=== PATIENT | female | born 1950 | race Caucasian/White ===

== ENCOUNTER 2016-12-31 16:25 | Inpatient (IN) | payer MEDICARE ==
[~2016-12-31] VITALS: Ht 157.5 cm; Wt 64.2 kg
[2016-12-31 16:27] VITALS: BP 165/80; PULSE 84; RESP 24; TEMP 98.6; O2SAT 98
--- NOTE | 2016-12-31 16:49 | PD ---
Physical Exam Time Seen by Provider: 16:44 Narrative 66yo F sent by Dr. Garcia for findings of stroke on MRI. Sx of disorientation and confusion started Tuesday. Had no other deficits other than visual hallucinations per . Patient seen in triage. VS reviewed. Awaiting bed placement. Data Data Last Documented VS Vital Signs Date Time Temp Pulse Resp B/P Pulse Ox O2 Delivery O2 Flow Rate FiO2 12/31/16 16:27 98.6 84 24 165/80 98 Room Air [facility] Supervised Visit with TESS: Michelle Vance Dec 31, 2016 16:49
[2016-12-31 16:56] VITALS: BP 147/72; PULSE 78; RESP 16; O2SAT 95
[2016-12-31] MEDS ORDERED: VITA400C28 PO (17:16)
[2016-12-31] MEDS ORDERED: CANA300T PO (17:16)
[2016-12-31] MEDS ORDERED: GABA300C5 PO (17:16)
[2016-12-31] MEDS ORDERED: ZANT150T2 PO (17:16)
[2016-12-31] MEDS ORDERED: PIOG15TA5 PO (17:16)
[2016-12-31] MEDS ORDERED: HYDR25TA5 PO (17:16)
[2016-12-31] MEDS ORDERED: DULA10IN SQ (17:16)
[2016-12-31] MEDS ORDERED: AGGR20025 PO (17:16)
[2016-12-31] MEDS ORDERED: FLUO40CA PO (17:16)
--- NOTE | 2016-12-31 17:24 | PD ---
HPI Chief Complaint: Neuro Symptoms/ Deficits Time Seen by Provider: 16:50 Travel History International Travel<30 days: No Contact w/Intl Traveler<30days: No Traveled to known affect area: No History of Present Illness HPI 66-year-old female was brought in by family member for confusion, disorientation. Family members state that patient started having confusion and disorientation 4 days ago. Patient started buying things on the computer that her family member has to returned them. Patient started remember things that was not true or not there. Patient was talking about interaction with other people that have been for long time. Patient denies any headache. Patient denies any neck pain. Patient denies any chest pain or shortness of breath. Patient denies abdominal pain. Patient denies any focal weakness or numbness of extremity. Patient denies any recent medication change. Patient has history diabetes, depression, GERD. PFSH Past Medical History Hx Anticoagulant Therapy: Yes (asa-dipyridam) Cardiovascular Problems: Yes (htn, [place]) Cerebrovascular Accident: Yes Diabetes: Yes Respiratory: Yes Social History Tobacco Use: No Allergies-Medications (Allergen,Severity, Reaction): Coded Allergies: HMG-CoA Reductase Inhibitors (Verified Allergy, Intermediate, leg pain, 12/31/16) Reported Meds & Prescriptions Reported Meds & Active Scripts Active Reported Trulicity Inj (Dulaglutide Inj) 1.5 Mg/0.5 Ml Pen 1.5 Mg SQ Q7D Zantac (Ranitidine HCl) 150 Mg Tab 150 Mg PO DAILY Vitamin D (Cholecalciferol) Unknown Strength Cap 1 Cap PO WEEKLY Aggrenox (Dipyridamole/Aspirin) 200-25 Mg Cap 1 Cap PO BID Hydrochlorothiazide 25 Mg Tab 25 Mg PO DAILY Gabapentin 300 Mg Cap 300 Mg PO BID Fluoxetine (Fluoxetine HCl) 40 Mg Cap 40 Cap PO DAILY Invokana (Canagliflozin) 300 Mg Tab 300 Mg PO DAILY Take before 1st meal of day. Pioglitazone (Pioglitazone HCl) 15 Mg Tab 15 Mg PO DAILY Review of Systems General / Constitutional: No: Fever Eyes: No: Visual changes HENT: No: Headaches Cardiovascular: No: Chest Pain or Discomfort Respiratory: No: Shortness of Breath Gastrointestinal: No: Abdominal Pain Genitourinary: No: Dysuria Musculoskeletal: No: Pain Skin: No Rash Neurologic: No: Weakness Psychiatric: No: Depression Endocrine: No: Polydipsia Hematologic/Lymphatic: No: Easy Bruising Physical Exam Narrative GENERAL: Well-nourished, well-developed patient. SKIN: Focused skin assessment warm/dry. HEAD: Normocephalic. EYES: No scleral icterus. No injection or drainage. Pupils 3 mm equal reactive. NECK: Supple, trachea midline. No JVD or lymphadenopathy. CARDIOVASCULAR: Regular rate and rhythm without murmurs, gallops, or rubs. RESPIRATORY: Breath sounds equal bilaterally. No accessory muscle use. GASTROINTESTINAL: Abdomen soft, non-tender, nondistended. MUSCULOSKELETAL: No cyanosis, or edema. BACK: Nontender without obvious deformity. No CVA tenderness. Neurologic exam: Patient's awake and alert oriented 3. Patient moves all extremities well. No obvious focal neurological deficit. Data Data Last Documented VS Vital Signs Date Time Temp Pulse Resp B/P Pulse Ox O2 Delivery O2 Flow Rate FiO2 12/31/16 17:31 95 Nasal Cannula 2 12/31/16 16:56 78 16 147/72 12/31/16 16:27 98.6 Orders Electrocardiogram (12/31/16 17:07) Complete Blood Count With Diff (12/31/16 17:07) Comprehensive Metabolic Panel (12/31/16 17:07) Prothrombin Time / Inr (Pt) (12/31/16 17:07) Act Partial Throm Time (Ptt) (12/31/16 17:07) Urinalysis - C+S If Indicated (12/31/16 17:07) Thyroid Stimulating Hormone (12/31/16 17:07) Chest, Single Ap (12/31/16 17:07) Iv Access Insert/Monitor (12/31/16 17:07) Ecg Monitoring (12/31/16 17:07) Oximetry (12/31/16 17:07) Mri Brain W&W/O Contrast (12/31/16 17:24) Mra Brain W/O Contrast (Cow) (12/31/16 17:24) Mra Carotids W Contrast (12/31/16 17:24) Consult Neurology (12/31/16 ) (Hub Use Only)Inp Phy Cons/Ref (12/31/16 ) Sodium Chlor 0.9% 1000 Ml Inj (Ns 1000 M (12/31/16 19:00) Admit Order (Ed Use Only) (12/31/16 19:05) Labs Laboratory Tests Test 12/31/16 17:25 White Blood Count 8.9 TH/MM3 Red Blood Count 5.44 MIL/MM3 Hemoglobin 15.5 GM/DL Hematocrit 47.0 % Mean Corpuscular Volume 86.5 FL Mean Corpuscular Hemoglobin 28.6 PG Mean Corpuscular Hemoglobin 33.0 % Concent Red Cell Distribution Width 12.8 % Platelet Count 264 TH/MM3 Mean Platelet Volume 8.4 FL Neutrophils (%) (Auto) 65.9 % Lymphocytes (%) (Auto) 24.2 % Monocytes (%) (Auto) 7.3 % Eosinophils (%) (Auto) 1.6 % Basophils (%) (Auto) 1.0 % Neutrophils # (Auto) 5.8 TH/MM3 Lymphocytes # (Auto) 2.1 TH/MM3 Monocytes # (Auto) 0.7 TH/MM3 Eosinophils # (Auto) 0.1 TH/MM3 Basophils # (Auto) 0.1 TH/MM3 CBC Comment DIFF FINAL Differential Comment Prothrombin Time 10.4 SEC Prothromb Time International 0.9 RATIO Ratio Activated Partial 28.9 SEC Thromboplast Time Sodium Level 136 MEQ/L Potassium Level 3.8 MEQ/L Chloride Level 100 MEQ/L Carbon Dioxide Level 23.6 MEQ/L Anion Gap 12 MEQ/L Blood Urea Nitrogen 18 MG/DL Creatinine 0.81 MG/DL Estimat Glomerular Filtration 71 ML/MIN Rate Random Glucose 139 MG/DL Calcium Level 9.7 MG/DL Total Bilirubin 0.9 MG/DL Aspartate Amino Transf 20 U/L (AST/SGOT) Alanine Aminotransferase 31 U/L (ALT/SGPT) Alkaline Phosphatase 108 U/L Total Protein 8.0 GM/DL Albumin 3.8 GM/DL Thyroid Stimulating Hormone 0.593 uIU/ML 3rd Gen Hemoglobin A1c 9.6 % [facility] Medical Decision Making Medical Screen Exam Complete: Yes Emergency Medical Condition: Yes Differential Diagnosis Differential diagnosis including TIA, CVA, electrolyte imbalance, dehydration, sepsis. Narrative Course 66-year-old female with confusion, disorientation, hallucination. I spoke with neurologist on-call Dr. Benavides. Patient had MRI without contrast of the brain at [facility] in [place] which equivocal of acute/subacute infarct. Dr. Benavides advised to repeat MRI with and without contrast and MRA of the brain and carotids. Dontrell Yeung MD Dec 31, 2016 17:24
[2016-12-31] MEDS ORDERED: DULA0.5I SQ (17:25)
[2016-12-31 17:31] VITALS: O2SAT 95
[2016-12-31 17:48] LABS: APTT (PATIENT) 28.9 SEC (24.3-30.1); INTERNATIONAL NORMALIZED RATIO 0.9 RATIO; PROTHROMBIN TIME - PATIENT 10.4 SEC (9.8-11.6)
[2016-12-31 17:53] LABS: AUTOMATED NEUTROPHIL # 5.8 TH/MM3 (1.8-7.7); BASOPHIL # 0.1 TH/MM3 (0-0.2); EOSINOPHIL # 0.1 TH/MM3 (0-0.4); EOSINOPHIL % 1.6 % (0.0-4.0); HEMO FLAGS DIFF FINAL; LYMPH % 24.2 % (9.0-44.0); LYMPHOCYTE # 2.1 TH/MM3 (1.0-4.8); MEAN CELL VOLUME 86.5 FL (80.0-100.0); MEAN CORPUSCULAR HEMOGLOBIN 28.6 PG (27.0-34.0); MONO % 7.3 % (0.0-8.0); NEUT % 65.9 % (16.0-70.0); PLATELET COUNT 264 TH/MM3 (150-450); RED BLOOD COUNT 5.44 MIL/MM3 (4.00-5.30); RED CELL DISTRIBUTION WIDTH 12.8 % (11.6-17.2); WHITE BLOOD COUNT 8.9 TH/MM3 (4.0-11.0)
--- NOTE | 2016-12-31 18:02 | RADRPT ---
EXAM DATE/TIME: 12/31/2016 17:33 [facility] COMPARISON: No previous studies available for comparison. INDICATIONS : Shortness of breath and patient having delusions. MEDICAL HISTORY : Diabetes mellitus type II. Myocardial infarction. SURGICAL HISTORY : Angioplasty. ENCOUNTER: Initial ACUITY: 1 day PAIN SCORE: 0/10 LOCATION: chest FINDINGS: A single view of the chest demonstrates the lungs to be symmetrically aerated without evidence of mas s, infiltrate or effusion. The cardiomediastinal contours are unremarkable. Osseous structures are intact. CONCLUSION: 1. No acute cardiopulmonary disease. Ciro Gaxiola MD on December 31, 2016 at 18:01 Board Certified Radiologist. This report was verified electronically.
[2016-12-31 18:10] LABS: ANION GAP 12 MEQ/L (5-15); AST (GOT) 20 U/L (15-37); BICARBONATE 23.6 MEQ/L (21.0-32.0); BLOOD UREA NITROGEN 18 MG/DL (7-18); CHLORIDE 100 MEQ/L (98-107); GLOMERULAR FILTRATION RATE 71 ML/MIN (>89); POTASSIUM 3.8 MEQ/L (3.5-5.1); SODIUM (NA) 136 MEQ/L (136-145)
[2016-12-31 18:11] LABS: ALT (GPT) 31 U/L (10-53)
[2016-12-31 18:20] LABS: ALKALINE PHOSPHATASE 108 U/L (45-117); TOTAL BILIRUBIN ADULT 0.9 MG/DL (0.2-1.0)
[2016-12-31] MEDS ORDERED: SODIUM CHLORIDE 0.9% FLUSH 5 ML FLUSH IV FLUSH PRN (19:30)
[2016-12-31] MEDS ORDERED: ENALAPRILAT 1.25 MG/ML VIAL IV PRN (19:30)
[2016-12-31] MEDS ORDERED: DEXTROSE 50% IN WATER 50 ML VIAL(D50) IV PUSH PRN (19:30)
[2016-12-31] MEDS ORDERED: GLUCAGON 1 MG/ML VIAL OTHER PRN (19:30)
[2016-12-31 19:43] VITALS: O2SAT 96
[2016-12-31] MEDS ORDERED: GADODIAMIDE PF 287 MG/ML 20 ML VIAL (for RAD MRI) IV ONE (20:00)
--- NOTE | 2016-12-31 20:26 | RADRPT ---
EXAM DATE/TIME: 12/31/2016 19:31 [facility] COMPARISON: No previous studies available for comparison. INDICATIONS : Confusion. MEDICAL HISTORY : Diabetes mellitus type 2. SURGICAL HISTORY : None. ENCOUNTER: Initial ACUITY: 1 day PAIN SCORE: 0/10 LOCATION: cranial Please note a normal MRA of the brain does not entirely exclude the possibility of a small aneurysm, nor the possibility of distal intracranial vessel disease. TECHNIQUE: 3D time of flight MRA was performed. Source images, multiplanar STS MIP, and 3D volume MIP reconstru ctions were reviewed. FINDINGS: There is minimal intracranial atherosclerotic vascular disease. The left posterior cerebral arises f rom the bibasilar. The right posterior cerebral arises from and to circulation. CONCLUSION: Intracranial atherosclerotic vascular disease otherwise negative. Jv Hobson MD FACR on December 31, 2016 at 20:22 Board Certified Radiologist. This report was verified electronically.
[2016-12-31 21:00] VITALS: BP 129/71; PULSE 88; RESP 18; O2SAT 98
[2016-12-31] MEDS: INSULIN ASPART SUPPLEMENTAL SCALE SQ SCH (21:00)
[2016-12-31 21:02] LABS: BLOOD, URINE NEG (NEG); COMMENT (UR) CULT NOT INDICATED; CULTURE IF INDICATED CULT NOT INDICATED; GLUCOSE,URINE 1000 mg/dL (NEG); HYALINE CAST, URINE 1 /lpf (RARE); KETONE, URINE 40 mg/dL (NEG); MUCUS URINE FEW /lpf (OCC); NITRITE,URINE NEG (NEG); SQUAMOUS EPITHELIAL CELL URINE <1 /hpf (0-5); URINE COLOR LIGHT-YELLOW (YELLW/STRAW)
[2016-12-31] MEDS: SODIUM CHLOR 0.9% 1000 ML INJ 1,000 ML IV SCH (21:14)
[2016-12-31] MEDS: ENOXAPARIN SODIUM 40 MG/0.4 ML SYRINGE SQ SCH (21:15)
--- NOTE | 2016-12-31 21:16 | RADRPT ---
EXAM DATE/TIME: 12/31/2016 19:31 [facility] COMPARISON: No previous studies available for comparison. INDICATIONS : Confusion. CONTRAST: 20 cc Omniscan (gadodiamide) IV MEDICAL HISTORY : Diabetes mellitus type 2. SURGICAL HISTORY : None. ENCOUNTER: Initial ACUITY: 1 day PAIN SCORE: 0/10 LOCATION: Cranial TECHNIQUE: Multiplanar, multisequence MRI of the brain was performed both prior to and following the administrat ion of paramagnetic contrast. FINDINGS: There is a focal area of restricted diffusion in the thalamus left side that would be consistent with a small acute lacunar infarct. There are scattered areas of high signal intensity in the periventricular white matter. There are no extraaxial fluid collections appreciated. There is no parenchymal hemorrhage. Following intravenous administration of gadolinium there is no abnormal contrast enhancement. CONCLUSION: 1. Acute lacunar infarct type infarction in the basal ganglia left side. 2. Moderate periventricular white matter changes. Jv Hobson MD FACR on December 31, 2016 at 21:02 Board Certified Radiologist. This report was verified electronically.
[2016-12-31 21:22] LABS: ANION GAP 10 MEQ/L (5-15); BICARBONATE 25.4 MEQ/L (21.0-32.0); BLOOD UREA NITROGEN 18 MG/DL (7-18); CHLORIDE 99 MEQ/L (98-107); GLOMERULAR FILTRATION RATE 69 ML/MIN (>89); POTASSIUM 3.5 MEQ/L (3.5-5.1); SODIUM (NA) 134 MEQ/L (136-145)
--- NOTE | 2016-12-31 21:23 | RADRPT ---
EXAM DATE/TIME: 12/31/2016 19:31 [facility] COMPARISON: No previous studies available for comparison. INDICATIONS : Disoriented. CONTRAST: 20 cc Omniscan (gadodiamide) IV MEDICAL HISTORY : Diabetes mellitus type 2. SURGICAL HISTORY : None. ENCOUNTER: Initial ACUITY: 1 day PAIN SCORE: 0/10 LOCATION: cranial Percent stenosis is calculated using the diameter of the stenotic region over the diameter of the nor mal distal internal carotid artery. TECHNIQUE: Bolus infused MRA of the extracranial circulation was performed using a neurovascular coil. Post pro cessing was performed including rotating subvolume maximum intensity projections of each carotid ileana ry, rotating full volume maximum intensity projections of both carotid arteries, sagittal and coronal sliding thin slab reformations of each carotid artery, and left oblique sliding thin slab reformatio n through the aortic arch to include the origin of the arch branch vessels. FINDINGS: AORTIC ARCH: There is a three vessel origin of the great vessels from the aorta. No evidence of ostial narrowing. RIGHT CAROTID: The common carotid artery is intact. The carotid bulb has a normal configuration without ulceration or narrowing. The internal carotid artery lumen is smooth without stenosis. The external carotid ar vel is intact. LEFT CAROTID: 60-70% stenosis of the left internal carotid. VERTEBRALS: The vertebral arteries have a symmetric diameter. No stenotic lesions are seen. CONCLUSION: Moderate stenosis left internal carotid. Jv Hobson MD FACR on December 31, 2016 at 21:21 Board Certified Radiologist. This report was verified electronically.
[2016-12-31 22:19] LABS: CREATINE KINASE 31 U/L (26-192)
--- NOTE | 2016-12-31 23:16 | HHI.HP ---
[facility] Neptali [facility] M.D. Admission Diagnosis acute CVA Diagnoses: (1) CVA (cerebral vascular accident) Diagnosis: Principal (2) Coronary artery disease (3) Diabetes mellitus (4) Hypertension Chief Complaint: Confusion Travel History International Travel<30 Days: No Contact w/Intl Traveler <30 Da: No Traveled to Known Affected Are: No History of Present Illness Patient is a 66-year-old female who was brought to the emergency department by her family because they had noticed increasing confusion and disorientation over the last few days. Apparently she has been remembering events that did not happen and seeing family members who had years ago. She states that her uncle one week ago and since that time she has felt "off". Her family believes that a lot of this is because of depression. She was seen by her primary care physician and a CT of the head was ordered. It showed acute/ subacute CVA and the patient was referred to the ER for admission to the hospital. She denies any numbness, tingling, or weakness of her extremities. She has not had any recent vision changes. She denies chest pain or dyspnea. Review of Systems Constitutional: DENIES: Fever, Chills, Night Sweats Eyes: DENIES: Blurred vision, Vision loss Ears, nose, mouth, throat: DENIES: Hearing loss Respiratory: DENIES: Cough, Wheezing, Sputum production, Shortness of breath Cardiovascular: DENIES: Chest pain, Palpitations, Dyspnea on Exertion, Lower Extremity Edema Gastrointestinal: DENIES: Abdominal pain, Constipation, Diarrhea, Nausea, Vomiting Genitourinary: DENIES: Urinary frequency, Urinary incontinence, Urgency, Hematuria, Dysuria, Nocturia Musculoskeletal: DENIES: Joint pain, Muscle aches Integumentary: DENIES: Pruritus, Rash Hematologic/lymphatic: DENIES: Bruising Neurologic: DENIES: Headache Psychiatric: COMPLAINS OF: Depression, Hallucinations, Delusions Past Family Social History Past Medical History History of CVA with mild residual left-sided weakness Hypertension History of CT Diabetes mellitus Past Surgical History Cardiac catheterization Reported Medications Trulicity Inj (Dulaglutide Inj) 1.5 Mg/0.5 Ml Pen 1.5 Mg SQ Q7D Zantac (Ranitidine HCl) 150 Mg Tab 150 Mg PO DAILY Vitamin D (Cholecalciferol) Unknown Strength Cap 1 Cap PO WEEKLY Aggrenox (Dipyridamole/Aspirin) 200-25 Mg Cap 1 Cap PO BID Hydrochlorothiazide 25 Mg Tab 25 Mg PO DAILY Gabapentin 300 Mg Cap 300 Mg PO BID Fluoxetine (Fluoxetine HCl) 40 Mg Cap 40 Cap PO DAILY Invokana (Canagliflozin) 300 Mg Tab 300 Mg PO DAILY Take before 1st meal of day. Pioglitazone (Pioglitazone HCl) 15 Mg Tab 15 Mg PO DAILY Allergies: Coded Allergies: HMG-CoA Reductase Inhibitors (Verified Allergy, Intermediate, leg pain, 12/31/16) Family History Heart disease Social History Denies tobacco use. Rare alcohol use. Denies illicit drug use. Physical Exam Vital Signs Vital Signs Date Time Temp Pulse Resp B/P Pulse Ox O2 Delivery O2 Flow Rate FiO2 12/31/16 21:00 88 18 129/71 98 Room Air 12/31/16 19:43 96 Nasal Cannula 2.00 12/31/16 17:31 95 Nasal Cannula 2 12/31/16 16:56 Room Air 12/31/16 16:56 78 16 147/72 95 Nasal Cannula 2 12/31/16 16:27 98.6 84 24 165/80 98 Room Air Physical Exam GENERAL: Well-nourished, well-developed female] in no acute distress. HEENT: Normocephalic, atraumatic. Pupils equal, round and reactive. Extraocular movements intact. No scleral icterus. No injection or drainage. Oropharynx is clear. Mucous membranes are moist. CARDIOVASCULAR: Regular rate and rhythm without murmurs, gallops, or rubs. RESPIRATORY: Clear to auscultation. No wheezes, rales, or rhonchi. Breathing is non-labored. GASTROINTESTINAL: Abdomen soft, non-tender, nondistended. EXTREMITIES: No lower extremity edema. No calf tenderness. PSYCH: Alert and oriented x 3. Laboratory Laboratory Tests Test 12/31/16 12/31/16 17:25 20:35 White Blood Count 8.9 Red Blood Count 5.44 Hemoglobin 15.5 Hematocrit 47.0 Mean Corpuscular Volume 86.5 Mean Corpuscular Hemoglobin 28.6 Mean Corpuscular Hemoglobin 33.0 Concent Red Cell Distribution Width 12.8 Platelet Count 264 Mean Platelet Volume 8.4 Neutrophils (%) (Auto) 65.9 Lymphocytes (%) (Auto) 24.2 Monocytes (%) (Auto) 7.3 Eosinophils (%) (Auto) 1.6 Basophils (%) (Auto) 1.0 Neutrophils # (Auto) 5.8 Lymphocytes # (Auto) 2.1 Monocytes # (Auto) 0.7 Eosinophils # (Auto) 0.1 Basophils # (Auto) 0.1 CBC Comment DIFF FINAL Differential Comment Prothrombin Time 10.4 Prothromb Time International 0.9 Ratio Activated Partial 28.9 Thromboplast Time Sodium Level 136 134 Potassium Level 3.8 3.5 Chloride Level 100 99 Carbon Dioxide Level 23.6 25.4 Anion Gap 12 10 Blood Urea Nitrogen 18 18 Creatinine 0.81 0.83 Estimat Glomerular Filtration 71 69 Rate Random Glucose 139 129 Calcium Level 9.7 8.6 Total Bilirubin 0.9 Aspartate Amino Transf 20 (AST/SGOT) Alanine Aminotransferase 31 (ALT/SGPT) Alkaline Phosphatase 108 Total Protein 8.0 Albumin 3.8 Thyroid Stimulating Hormone 0.593 3rd Gen Urine Color LIGHT-YELLOW Urine Turbidity CLEAR Urine pH 5.0 Urine Specific [place] 1.023 Urine Protein NEG Urine Glucose (UA) 1000 Urine Ketones 40 Urine Occult Blood NEG Urine Nitrite NEG Urine Bilirubin NEG Urine Urobilinogen LESS THAN 2.0 Urine Leukocyte Esterase SMALL Urine WBC 7 Urine Squamous Epithelial <1 Cells Urine Hyaline Casts 1 Urine Mucus FEW Microscopic Urinalysis Comment CULT NOT INDICATED Total Creatine Kinase 31 Troponin I LESS THAN 0.02 Result Diagram: 12/31/16172412/31/162034 Imaging Last Impressions Neck Magnetic Resonance Angiography 12/31/161723 Signed Impressions: Service Date/Time: Saturday, December 31, 2016 19:31 - CONCLUSION: Moderate stenosis left internal carotid. Jv Hobson MD FACR Head Magnetic Resonance Angiography 12/31/161723 Signed Impressions: Service Date/Time: Saturday, December 31, 2016 19:31 - CONCLUSION: Intracranial atherosclerotic vascular disease otherwise negative. Jv Hobson MD FACR Brain MRI 12/31/161723 Signed Impressions: Service Date/Time: Saturday, December 31, 2016 19:31 - CONCLUSION: 1. Acute lacunar infarct type infarction in the basal ganglia left side. 2. Moderate periventricular white matter changes. Jv Hobson MD FACR Chest X-Ray 12/31/16 [id number] Signed Impressions: Service Date/Time: Saturday, December 31, 2016 17:33 - CONCLUSION: 1. No acute cardiopulmonary disease. Ciro Gaxiola MD Assessment and Plan Assessment and Plan 1. CVA: Imaging done as outpatient today showed acute/subacute CVA. Repeat imaging done in the ER is pending at the time of my evaluation. The ER physician spoke with Dr. Benavides, neurology. PT/OT/ST. Allow permissive hypertension. 2. Hypertension: Allow permissive hypertension. 3. Diabetes mellitus: Monitor Accu-Cheks and cover with sliding scale insulin. 4. Coronary artery disease: Currently asymptomatic. Patient does not take statin as she developed muscle pains. 5. DVT prophylaxis: SCDs, Emi Cashx. Problem Qualifiers (1) Diabetes mellitus: Horacio Luz MD Dec 31, 2016 23:16
[2017-01-01] VITALS (9 sets, daily range): BP systolic 136–170; BP diastolic 73–82; PULSE 66–79; RESP 15–17; TEMP 96.9–97.8; O2SAT 91–97
[2017-01-01 04:47] LABS: HDL CHOLESTEROL 43.7 MG/DL (40.0-60.0); LDL CHOLESTEROL 172 MG/DL (0-99)
[2017-01-01 04:48] LABS: CREATINE KINASE 26 U/L (26-192)
[2017-01-01] MEDS: INSULIN ASPART SUPPLEMENTAL SCALE SQ SCH ×4 (06:18→21:00)
[2017-01-01] MEDS: FLUoxetine HCL 20 MG CAP PO SCH (08:28)
[2017-01-01] MEDS: FAMOTIDINE 20 MG TAB PO SCH (08:28)
[2017-01-01] MEDS: GABAPENTIN 300 MG CAP PO SCH ×2 (08:28→21:06)
[2017-01-01] MEDS: ASPIRIN 325 MG TAB PO SCH (08:28)
[2017-01-01] MEDS: SODIUM CHLOR 0.9% 1000 ML INJ 1,000 ML IV SCH ×2 (09:18→21:07)
--- NOTE | 2017-01-01 09:46 | HHI.PR ---
Subjective Remarks This is a pleasant 66 y/o Female who was brought in to the ER by relatives due to increasing confusion and disorientation over the last few days. has Depression, Hypertension, History of [place], CVA with mild residual left sided Weakness, CT showed acute/subacute CVA, MRI showed infarct of the basal ganglia, seen in her bedroom in the presence of her Mr. Abhishek Ragland. no complaint, no nausea, vomit or diarrhea, past her swallow test will start diet. Objective Vital Signs Date Time Temp Pulse Resp B/P Pulse Ox O2 Delivery O2 Flow Rate FiO2 01/01/17 08:05 94 21 01/01/17 08:00 97.6 66 16 136/82 95 01/01/17 07:14 73 01/01/17 04:00 97.6 72 16 170/80 95 01/01/17 00:00 97.8 70 15 162/73 94 12/31/16 21:00 88 18 129/71 98 Room Air 12/31/16 19:43 96 Nasal Cannula 2.00 12/31/16 17:31 95 Nasal Cannula 2 12/31/16 16:56 Room Air 12/31/16 16:56 78 16 147/72 95 Nasal Cannula 2 12/31/16 16:27 98.6 84 24 165/80 98 Room Air I/O 12/31/16 12/31/16 12/31/16 01/01/17 01/01/17 01/01/17 06:59 14:59 22:59 06:59 14:59 22:59 Intake Total 480 ml Balance 480 ml Intake Oral 480 ml # Voids 2 # Bowel Movements 0 Result Diagram: 12/31/16172412/31/162034 Imaging Last Impressions Neck Magnetic Resonance Angiography 12/31/161723 Signed Impressions: Service Date/Time: Saturday, December 31, 2016 19:31 - CONCLUSION: Moderate stenosis left internal carotid. Jv Hobson MD FACR Head Magnetic Resonance Angiography 12/31/161723 Signed Impressions: Service Date/Time: Saturday, December 31, 2016 19:31 - CONCLUSION: Intracranial atherosclerotic vascular disease otherwise negative. Jv Hobson MD FACR Brain MRI 12/31/161723 Signed Impressions: Service Date/Time: Saturday, December 31, 2016 19:31 - CONCLUSION: 1. Acute lacunar infarct type infarction in the basal ganglia left side. 2. Moderate periventricular white matter changes. Jv Hobson MD FACR Chest X-Ray 12/31/16 1707 Signed Impressions: Service Date/Time: Saturday, December 31, 2016 17:33 - CONCLUSION: 1. No acute cardiopulmonary disease. Ciro Gaxiola MD Procedures None Other Results Laboratory Tests Test 12/31/16 12/31/16 01/01/17 17:25 20:35 03:51 White Blood Count 8.9 TH/MM3 Red Blood Count 5.44 MIL/MM3 Hemoglobin 15.5 GM/DL Hematocrit 47.0 % Mean Corpuscular Volume 86.5 FL Mean Corpuscular Hemoglobin 28.6 PG Mean Corpuscular Hemoglobin 33.0 % Concent Red Cell Distribution Width 12.8 % Platelet Count 264 TH/MM3 Mean Platelet Volume 8.4 FL Neutrophils (%) (Auto) 65.9 % Lymphocytes (%) (Auto) 24.2 % Monocytes (%) (Auto) 7.3 % Eosinophils (%) (Auto) 1.6 % Basophils (%) (Auto) 1.0 % Neutrophils # (Auto) 5.8 TH/MM3 Lymphocytes # (Auto) 2.1 TH/MM3 Monocytes # (Auto) 0.7 TH/MM3 Eosinophils # (Auto) 0.1 TH/MM3 Basophils # (Auto) 0.1 TH/MM3 CBC Comment DIFF FINAL Differential Comment Prothrombin Time 10.4 SEC Prothromb Time International 0.9 RATIO Ratio Activated Partial 28.9 SEC Thromboplast Time Total Bilirubin 0.9 MG/DL Aspartate Amino Transf 20 U/L (AST/SGOT) Alanine Aminotransferase 31 U/L (ALT/SGPT) Alkaline Phosphatase 108 U/L Total Protein 8.0 GM/DL Albumin 3.8 GM/DL Thyroid Stimulating Hormone 0.593 uIU/ML 3rd Gen Urine Color LIGHT-YELLOW Urine Turbidity CLEAR Urine pH 5.0 Urine Specific [place] 1.023 Urine Protein NEG mg/dL Urine Glucose (UA) 1000 mg/dL Urine Ketones 40 mg/dL Urine Occult Blood NEG Urine Nitrite NEG Urine Bilirubin NEG Urine Urobilinogen LESS THAN 2.0 MG/DL Urine Leukocyte Esterase SMALL Urine WBC 7 /hpf Urine Squamous Epithelial <1 /hpf Cells Urine Hyaline Casts 1 /lpf Urine Mucus FEW /lpf Microscopic Urinalysis Comment CULT NOT INDICATED Sodium Level 134 MEQ/L Potassium Level 3.5 MEQ/L Chloride Level 99 MEQ/L Carbon Dioxide Level 25.4 MEQ/L Anion Gap 10 MEQ/L Blood Urea Nitrogen 18 MG/DL Creatinine 0.83 MG/DL Estimat Glomerular Filtration 69 ML/MIN Rate Random Glucose 129 MG/DL Calcium Level 8.6 MG/DL Total Creatine Kinase 26 U/L Troponin I LESS THAN 0.02 NG/ML Triglycerides Level 247 MG/DL Cholesterol Level 265 MG/DL LDL Cholesterol 172 MG/DL HDL Cholesterol 43.7 MG/DL Cholesterol/HDL Ratio 6.06 RATIO Objective Remarks GENERAL: Well-nourished, well-developed female] in no acute distress. HEENT: Normocephalic, atraumatic. Pupils equal, round and reactive. Extraocular movements intact. No scleral icterus. No injection or drainage. Oropharynx is clear. Mucous membranes are moist. CARDIOVASCULAR: Regular rate and rhythm without murmurs, gallops, or rubs. RESPIRATORY: Clear to auscultation. No wheezes, rales, or rhonchi. Breathing is non-labored. GASTROINTESTINAL: Abdomen soft, non-tender, nondistended. EXTREMITIES: No lower extremity edema. No calf tenderness. PSYCH: Alert and oriented x 3. Medications and IVs Current Medications Medications (Trade) Dose Ordered Sig/Shantel Route Start Time Stop Time Status Last Admin (NS 1000 ml Inj) 1,000 ml @ 70 mls/hr [id number] IV 12/31/16 19:00 12/31/16 21:14 (NS Flush) 2 ml UNSCH PRN IV FLUSH 12/31/16 19:30 (Vasotec Inj) 1.25 mg Q4H PRN IV 12/31/16 19:30 (Aspirin) 325 mg DAILY PO 01/01/17 09:00 01/01/17 08:28 (NovoLOG SUPPLEMENTAL SCALE) 1 ACHS SQ 12/31/16 21:00 (D50w (Vial) Inj) 50 ml UNSCH PRN IV PUSH 12/31/16 19:30 (Glucagon Inj) 1 mg UNSCH PRN OTHER 12/31/16 19:30 (Lovenox Inj) 40 mg Q24H SQ 12/31/16 20:00 12/31/16 21:15 (Neurontin) 300 mg BID PO 01/01/17 09:00 01/01/17 08:28 (Pepcid) 20 mg DAILY PO 01/01/17 09:00 01/01/17 08:28 (PROzac) 40 mg DAILY PO 01/01/17 09:00 01/01/17 08:28 A/P Assessment and Plan 1. CVA: MRI showed Infarct of the left Basal ganglia, receiving aspirin, she has Hyperlipidemia unable to start Statins, Neurology specialist consult, PT/OT/ST. Allow permissive hypertension. 2. Hypertension: Allow permissive hypertension. 3. Diabetes mellitus: Monitor Accu-Cheks and cover with sliding scale insulin. 4. Coronary artery disease: Currently asymptomatic. Patient does not take statin as she developed muscle pains. 5. Overweight diet and exercise recommended 6. Hyperlipidemia allergic to Statins, will use the second line therapy Ezetimibe starting 10 mg daily. Discussed with patient, her Mr. Abhishek Ragland in the room and nurse, all questions answered to the best of my abilities. DVT prophylaxis: SCDs, Dexter Cash. Discharge Planning Once cleared by Neurology specialist the patent wants to go home now. Cj Bernard MD Jan 01, 2017 09:46
[2017-01-01 11:38] LABS: CREATINE KINASE 43 U/L (26-192)
[2017-01-01] MEDS ORDERED: SODIUM CHLORIDE 0.9% FLUSH 5 ML FLUSH IV FLUSH PRN (15:15)
[2017-01-01] MEDS ORDERED: GLUCAGON 1 MG/ML VIAL OTHER PRN (15:15)
[2017-01-01] MEDS ORDERED: DEXTROSE 50% IN WATER 50 ML VIAL(D50) IV PUSH PRN (15:15)
--- NOTE | 2017-01-01 16:33 | EKG ---
Date Performed: 12/31/2016 Time Performed: 17:21:34 PTAGE: 66 years EKG: Sinus rhythm MODERATE ST DEPRESSION ABNORMAL ECG NO PREVIOUS TRACING DOCTOR: Franco Clark Interpretating Date/Time 01/01/2017 16:31:23
--- NOTE | 2017-01-01 16:42 | MB ---
cc: ESEQUIEL PEPE M.D. DATE OF CONSULTATION: 01/01/2017. REASON FOR CONSULTATION: Parkinsons. HISTORY OF PRESENT ILLNESS: is an 83-year-old female who was admitted to the hospital with difficulty with hip pain and low-back pain and difficulty ambulating. She has also been very confused and disoriented. Apparently she had a history of balance difficulty with falling as well as progressive lumbar pain. The patient had an MRI of the lumbar spine showing a compression fracture at T12 with retropulsion causing moderate to severe spinal canal stenosis. She has been evaluated by Dr. Yg Mireles from the neurosurgical service who felt that she is a poor candidate for surgical intervention. PAST MEDICAL HISTORY: 1. There is a history of coronary artery disease. 2. Previous MT 3. Parkinson's disease. 4. Arthritis. 5. Hypertension. 6. Dyslipidemia. 7. Hysterectomy. 8. Bilateral knee arthroplasty surgery. 9. Carotid endarterectomy. 10. Cardiac stents. MEDICATIONS AT HOME: 1. Tylenol with codeine. 2. Multivitamins. 3. Vitamin B12. 4. Aspirin 81 milligrams daily. 5. Metoprolol. NEUROLOGIC EXAMINATION: VITAL SIGNS: Blood pressure is 157/80, pulse is 100, respirations 18, temperature 97 degrees. HIGHER CORTICAL FUNCTIONS: She is alert but she is disoriented to date and place. She is very confused. She recalls 0/3 objects in 3 minutes. Remote memory is poor. CRANIAL NERVES: Cranial nerves are intact. MOTOR: On motor exam, she has mild bradykinesia. At the present time, she has normal strength in the upper and lower extremities at 5/5. She has a mild tremor but mainly sustention tremor. REFLEXES: Reflexes are symmetric. IMAGING STUDIES: CT scan of the brain shows atrophy, no acute process is identified. MRI of the lumbar spine is as noted above. LABORATORY DATA: White count 10,600, hemoglobin is 13.2, hematocrit 39.8%, platelet count 295,000. Erythrocyte sedimentation rate is 28. Sodium is 141, potassium 4.2, chloride 104, CO2 29.8, BUN is 18, creatinine 0.62, GFR 92, glucose 88, AST 30, ALT is 31. IMPRESSION: The patient has evidence of a significant dementia. She does have some extrapyramidal features on her exam. It is difficult to say whether this is primary Parkinson's disease but I suspect this is probably a Parkinson's dementia complex possibly a Lewy body dementia. I would expect the responsiveness of her gait to not be high to dopaminergic agents. RECOMMENDATIONS: 1. I would like to proceed with an MRI of the brain to rule out any other etiology of ataxia. 2. Also check labs including a B12 level and a thyroid panel. 3. In the future, if she continues with gait difficulty, could institute a trial of low-dose Requip or Mirapex; however, I think the chance of this exacerbating her confusion would be greater than the chance of it helping her gait. MD KALEB Monroy/NARAYAN /3:04 PM /11:50 AM
--- NOTE | 2017-01-01 16:53 | MB ---
cc: ESEQUIEL PEPE DATE OF CONSULTATION 01/01/17 REASON FOR CONSULTATION Stroke HISTORY OF PRESENT ILLNESS Ms. Kamara is a 66-year female who developed fairly acute onset of mental status change with hallucinations and confusion last Tuesday. Her states she was also delusional. For example, she thought that she went to [place] this week with her sister who has been for quite some time. She went to her primary care physician at [place] yesterday and an MRI of the brain reveals a acute stroke in the basal ganglia. Her brought her to the ER here at [facility] for further evaluation. She denies any slurred speech, dizziness, focal weakness. PAST MEDICAL HISTORY 1. History of stroke 10 years ago causing left-sided weakness from which she recovered 2. History of coronary artery disease, 3. Diabetes, 4. Hypertension. MEDICATIONS At home, 1. Aggrenox one b.i.d. 2. Hydrochlorothiazide. 3. Zantac 4. Trulicity 5. Gabapentin 300 mg b.i.d. 6. Fluoxetine 40 mg daily 7. Invocana 8. Pioglitazone ALLERGIES HMG-CoA REDUCTASE INHIBITORS SOCIAL HISTORY Denies tobacco use. Drinks alcohol rarely. NEUROLOGIC EXAMINATION VITAL SIGNS: Blood pressure 159/77, pulse 77, respirations 16, temperature 97 degrees. Higher cortical function - she is alert. She is somewhat disoriented. She has poor recall. She does appear somewhat depressed. Cranial nerves are intact. Motor exam - she has slightly diminished fine motor skills in the left hand which her4 states is from her old stroke, otherwise, normal. Reflexes are 2+ and symmetric. IMAGING STUDIES She had a brain MRI done here showing an acute lacunar stroke in the left basal ganglia, moderate ischemic demyelinization is identified. MRA brain shows atherosclerosis intracranially. Neck MRA shows moderate stenosis of the left internal carotid artery about 60-70%. LABORATORY DATA White count is 8900, hemoglobin 15.5, hematocrit 47%, platelet count 264,000, PT 10.4, INR 0.9, APTT 28.9. Sodium is 134, potassium 3.5, chloride 99, CO2 25, the BUN is 18, creatinine 0.83, GFR 69, glucose 129, triglycerides 247, cholesterol 265, LDL 172. IMPRESSION 1. Left basal ganglia stroke. 2. Left carotid stenosis RECOMMENDATIONS Recommend vascular surgery consult regarding the left carotid stenosis. We will also get a CT angiogram to evaluate the degree of stenosis further. Recommend continuing aspirin for now. Depending on the result of the CT angiogram, if there does not appear to be a surgical degree of stenosis on the left would recommend starting Plavix. We will also recommend starting a statin because of the elevated LDL. Also obtain an echocardiogram. Monitor cardiac telemetry, rule out atrial fibrillation. MD KALEB Monroy/ /3:13 PM /4:46 PM
[2017-01-01] MEDS: EZETIMIBE 10 MG TAB PO SCH (17:19)
[2017-01-01] MEDS ORDERED: IOHEXOL 350 MG/ML 10 ML VIAL (for RAD DIAG) IV ONE (18:25)
--- NOTE | 2017-01-01 19:09 | RADRPT ---
EXAM DATE/TIME: 01/01/2017 18:21 [facility] COMPARISON: MRA BRAIN W/O CONTRAST, December 31, 2016, 19:31. MRA CAROTIDS W CONTRAST, December 31, 2016, 19:31. INDICATIONS : Altered mental status, confusion. IV CONTRAST: 74 cc Omnipaque 350 (iohexol) IV ; Cumulative dose for multiple exams. RADIATION DOSE: 26.56 CTDIvol (mGy) ; Combined studies MEDICAL HISTORY : Stroke. Hypertension. diabetes SURGICAL HISTORY : None. ENCOUNTER: Initial ACUITY: 1 day PAIN SCALE: 0/10 LOCATION: Bilateral head TECHNIQUE: Volumetric scanning was performed using a multi-row detector CT scanner. The data was post processed with a variety of visualization algorithms including full volume maximum intensity projection, multi -planar sliding thin slab reformation, curved planar reformation, and surface rendering techniques. Using automated exposure control and adjustment of the mA and/or kV according to patient size, radiat ion dose was kept as low as reasonably achievable to obtain optimal diagnostic quality images. DICO M format image data is available electronically for review and comparison. FINDINGS: There is excellent visualization of the major intracranial arteries out to the second-order branch ve ssels. There is no evidence for aneurysm, vessel truncation or stenosis, and no evidence for vascula r malformation. The right posterior cerebral artery arises from the anterior circulation. CONCLUSION: 1. No focal stenosis or aneurysm. 2. Anatomic variant with the right posterior cerebral artery arising from the anterior circulation. Oz Turner MD on January 01, 2017 at 19:04 Board Certified Radiologist. This report was verified electronically.
--- NOTE | 2017-01-01 19:52 | RADRPT ---
EXAM DATE/TIME: 01/01/2017 18:21 [facility] COMPARISON: MRA CAROTIDS W CONTRAST, December 31, 2016, 19:31. INDICATIONS : Altered mental status, confusion. IV CONTRAST: 74 cc Omnipaque 350 (iohexol) IV ; Cumulative dose for multiple exams. RADIATION DOSE: 26.56 CTDIvol (mGy) ; Combined studies MEDICAL HISTORY : Stroke. Hypertension. diabetes SURGICAL HISTORY : None. ENCOUNTER: Initial ACUITY: 1 day PAIN SCALE: 0/10 LOCATION: Bilateral neck Elevated flow velocities and ICA/CCA ratios have been found to correlate with increased degrees of vessel stenosis, calculated as percentage of diameter relative to a normal segment of distal ICA/CCA. TECHNIQUE: Volumetric scanning was performed using a multirow detector CT scanner. The data was post processed with a variety of visualization algorithms including full-volume maximum intensity projection, multip lanar sliding thin-slab reformation, curved-planar reformation, and surface-rendering techniques. Us ing automated exposure control and adjustment of the mA and/or kV according to patient size, radiatio n dose was kept as low as reasonably achievable to obtain optimal diagnostic quality images. DICOM f ormat image data is available electronically for review and comparison. FINDINGS: AORTIC ARCH: There is a three-vessel origin of the great vessels from the aorta. No evidence of ostial narrowing. RIGHT CAROTID: The common carotid artery is intact. The carotid bulb has a normal configuration without ulceration o r narrowing. The internal carotid artery lumen is smooth with minimal narrowing of less than 20%. The external carotid artery is intact. LEFT CAROTID: The common carotid artery is intact. The carotid bulb has a normal configuration without ulceration or narrowing. The internal carotid artery demonstrates a 60-70% stenosis with calcified eccentric pl aque. The external carotid artery is intact. VERTEBRALS: The vertebral arteries have a symmetric diameter. No stenotic lesions are seen. CONCLUSION: 1. 60-70% stenosis of the left internal carotid artery with eccentric calcified plaque. 2. Less than 20% stenosis in the right internal carotid artery. Oz Turner MD on January 01, 2017 at 19:44 Board Certified Radiologist. This report was verified electronically.
[2017-01-01] MEDS ORDERED: ATORVASTATIN 10 MG TAB PO SCH (21:00)
[2017-01-01] MEDS: SODIUM CHLORIDE 0.9% FLUSH 5 ML FLUSH IV FLUSH SCH (21:00)
[2017-01-01] MEDS: ENOXAPARIN SODIUM 40 MG/0.4 ML SYRINGE SQ SCH (21:06)
[2017-01-02] VITALS (8 sets, daily range): BP systolic 136–177; BP diastolic 64–91; PULSE 72–88; RESP 16–18; TEMP 96.7–97.8; O2SAT 93–96
[2017-01-02] MEDS: INSULIN ASPART SUPPLEMENTAL SCALE SQ SCH ×4 (05:00→20:52)
[2017-01-02] MEDS: SODIUM CHLORIDE 0.9% FLUSH 5 ML FLUSH IV FLUSH SCH ×2 (09:00→20:46)
[2017-01-02] MEDS: FLUoxetine HCL 20 MG CAP PO SCH (10:02)
[2017-01-02] MEDS: EZETIMIBE 10 MG TAB PO SCH (10:02)
[2017-01-02] MEDS: ASPIRIN 325 MG TAB PO SCH (10:02)
[2017-01-02] MEDS: FAMOTIDINE 20 MG TAB PO SCH (10:03)
[2017-01-02] MEDS: GABAPENTIN 300 MG CAP PO SCH ×2 (10:03→20:46)
--- NOTE | 2017-01-02 10:24 | HHI.PR ---
Subjective Remarks This is a pleasant 66 y/o Female who was brought in to the ER by relatives due to increasing confusion and disorientation over the last few days. has Depression, Hypertension, History of [place], CVA with mild residual left sided Weakness, CT showed acute/subacute CVA, MRI showed infarct of the basal ganglia, seen in her bedroom in the presence of her Mr. Abhishek Ragland. no complaint, no nausea, vomit or diarrhea, past her swallow test will start diet. 01/02: Seen in her bedroom in the presence of her , no nausea, vomit or diarrhea, continued aspirin by Neurology specialist awaiting for Echocardiogram, asked for Vascular command and control specialist consult, and if non surgical case will add Plavix, continue seen by PT, OT and ST no need for any of this disciplines. Objective Vital Signs Date Time Temp Pulse Resp B/P Pulse Ox O2 Delivery O2 Flow Rate FiO2 01/02/17 08:00 96.7 88 17 147/70 94 01/02/17 04:00 97.7 83 16 136/64 93 01/02/17 00:00 97.8 84 18 154/72 95 01/01/17 22:00 95 01/01/17 20:00 79 01/01/17 20:00 96.9 73 16 168/77 95 01/01/17 16:00 97.6 76 17 156/73 91 01/01/17 12:00 97.7 77 16 159/77 97 I/O 01/01/17 01/01/17 01/01/17 01/02/17 01/02/17 01/02/17 07:00 15:00 23:00 07:00 15:00 23:00 Intake Total 480 ml 480 ml 473 ml 757 ml Output Total 4 ml Balance 480 ml 476 ml 473 ml 757 ml Intake Oral 480 ml 480 ml 240 ml 240 ml IV Total 233 ml 517 ml Output Urine Total 4 ml # Voids 2 1 1 # Bowel Movements 0 1 0 0 Result Diagram: 12/31/16 1725 12/31/162034 Imaging Last Impressions Neck CTA 01/01/17 0000 Signed Impressions: Service Date/Time: Sunday, January 01, 2017 18:21 - CONCLUSION: 1. 60-70%% stenosis of the left internal carotid artery with eccentric calcified plaque. 2. Less than 20%% stenosis in the right internal carotid artery. Oz Turner MD Head CTA 01/01/17 0000 Signed Impressions: Service Date/Time: Sunday, January 01, 2017 18:21 - CONCLUSION: 1. No focal stenosis or aneurysm. 2. Anatomic variant with the right posterior cerebral artery arising from the anterior circulation. Oz Turner MD Neck Magnetic Resonance Angiography 12/31/161723 Signed Impressions: Service Date/Time: Saturday, December 31, 2016 19:31 - CONCLUSION: Moderate stenosis left internal carotid. Jv Hobson MD FACR Head Magnetic Resonance Angiography 12/31/161723 Signed Impressions: Service Date/Time: Saturday, December 31, 2016 19:31 - CONCLUSION: Intracranial atherosclerotic vascular disease otherwise negative. Jv Hobson MD FACR Brain MRI 12/31/161723 Signed Impressions: Service Date/Time: Saturday, December 31, 2016 19:31 - CONCLUSION: 1. Acute lacunar infarct type infarction in the basal ganglia left side. 2. Moderate periventricular white matter changes. Jv Hobson MD FACR Chest X-Ray 12/31/161706 Signed Impressions: Service Date/Time: Saturday, December 31, 2016 17:33 - CONCLUSION: 1. No acute cardiopulmonary disease. Ciro Gaxiola MD Procedures None Other Results Laboratory Tests Test 12/31/16 12/31/16 01/01/17 01/01/17 17:25 20:35 03:51 10:04 White Blood Count 8.9 TH/MM3 Red Blood Count 5.44 MIL/MM3 Hemoglobin 15.5 GM/DL Hematocrit 47.0 % Mean Corpuscular Volume 86.5 FL Mean Corpuscular Hemoglobin 28.6 PG Mean Corpuscular Hemoglobin 33.0 % Concent Red Cell Distribution Width 12.8 % Platelet Count 264 TH/MM3 Mean Platelet Volume 8.4 FL Neutrophils (%) (Auto) 65.9 % Lymphocytes (%) (Auto) 24.2 % Monocytes (%) (Auto) 7.3 % Eosinophils (%) (Auto) 1.6 % Basophils (%) (Auto) 1.0 % Neutrophils # (Auto) 5.8 TH/MM3 Lymphocytes # (Auto) 2.1 TH/MM3 Monocytes # (Auto) 0.7 TH/MM3 Eosinophils # (Auto) 0.1 TH/MM3 Basophils # (Auto) 0.1 TH/MM3 CBC Comment DIFF FINAL Differential Comment Prothrombin Time 10.4 SEC Prothromb Time International 0.9 RATIO Ratio Activated Partial 28.9 SEC Thromboplast Time Total Bilirubin 0.9 MG/DL Aspartate Amino Transf 20 U/L (AST/SGOT) Alanine Aminotransferase 31 U/L (ALT/SGPT) Alkaline Phosphatase 108 U/L Total Protein 8.0 GM/DL Albumin 3.8 GM/DL Thyroid Stimulating Hormone 0.593 uIU/ML 3rd Gen Urine Color LIGHT-YELLOW Urine Turbidity CLEAR Urine pH 5.0 Urine Specific [place] 1.023 Urine Protein NEG mg/dL Urine Glucose (UA) 1000 mg/dL Urine Ketones 40 mg/dL Urine Occult Blood NEG Urine Nitrite NEG Urine Bilirubin NEG Urine Urobilinogen LESS THAN 2.0 MG/DL Urine Leukocyte Esterase SMALL Urine WBC 7 /hpf Urine Squamous Epithelial <1 /hpf Cells Urine Hyaline Casts 1 /lpf Urine Mucus FEW /lpf Microscopic Urinalysis Comment CULT NOT INDICATED Sodium Level 134 MEQ/L Potassium Level 3.5 MEQ/L Chloride Level 99 MEQ/L Carbon Dioxide Level 25.4 MEQ/L Anion Gap 10 MEQ/L Blood Urea Nitrogen 18 MG/DL Creatinine 0.83 MG/DL Estimat Glomerular Filtration 69 ML/MIN Rate Random Glucose 129 MG/DL Calcium Level 8.6 MG/DL Triglycerides Level 247 MG/DL Cholesterol Level 265 MG/DL LDL Cholesterol 172 MG/DL HDL Cholesterol 43.7 MG/DL Cholesterol/HDL Ratio 6.06 RATIO Total Creatine Kinase 43 U/L Troponin I LESS THAN 0.02 NG/ML Objective Remarks GENERAL: Well-nourished, well-developed female] in no acute distress. HEENT: Normocephalic, atraumatic. Pupils equal, round and reactive. Extraocular movements intact. No scleral icterus. No injection or drainage. Oropharynx is clear. Mucous membranes are moist. CARDIOVASCULAR: Regular rate and rhythm without murmurs, gallops, or rubs. RESPIRATORY: Clear to auscultation. No wheezes, rales, or rhonchi. Breathing is non-labored. GASTROINTESTINAL: Abdomen soft, non-tender, nondistended. EXTREMITIES: No lower extremity edema. No calf tenderness. PSYCH: Alert and oriented x 3. NEUROLOGY: alert and oriented, no focal deficits. Medications and IVs Current Medications Medications (Trade) Dose Ordered Sig/Shantel Route Start Time Stop Time Status Last Admin (NS 1000 ml Inj) 1,000 ml @ 70 mls/hr [id number] IV 12/31/16 19:00 12/31/16 21:14 (Vasotec Inj) 1.25 mg Q4H PRN IV 12/31/16 19:30 (Aspirin) 325 mg DAILY PO 01/01/17 09:00 01/02/17 10:02 (Lovenox Inj) 40 mg Q24H SQ 12/31/16 20:00 01/01/17 21:06 (Neurontin) 300 mg BID PO 01/01/17 09:00 01/02/17 10:03 (Pepcid) 20 mg DAILY PO 01/01/17 09:00 01/02/17 10:03 (PROzac) 40 mg DAILY PO 01/01/17 09:00 01/02/17 10:02 (NS Flush) 2 ml BID IV FLUSH 01/01/17 21:00 01/02/17 09:00 (NS Flush) 2 ml UNSCH PRN IV FLUSH 01/01/17 15:15 (NovoLOG SUPPLEMENTAL SCALE) 1 ACHS SQ 01/01/17 16:00 (D50w (Vial) Inj) 50 ml UNSCH PRN IV PUSH 01/01/17 15:15 (Glucagon Inj) 1 mg UNSCH PRN OTHER 01/01/17 15:15 (Zetia) 10 mg DAILY PO 01/01/17 16:30 01/02/17 10:02 A/P Assessment and Plan 1. CVA: MRI showed Infarct of the left Basal ganglia, receiving aspirin, she has Hyperlipidemia unable to start Statins, seen by Neurology specialist with also Left Carotid Stenosis, recommended for Vascular account installation specialist for consult recommended to continue Aspirin, and if no surgery performed, will add Plavix, CT angiography for evaluation, awaiting final recommendations by Vascular surgery, continue Telemetry to rule out Atrial Fibrillation, follow Echocardiogram. 2. Hypertension: Allow permissive hypertension. 3. Diabetes mellitus: Monitor Accu-Cheks and cover with sliding scale insulin. 4. Coronary artery disease: Currently asymptomatic. Patient does not take statin as she developed muscle pains. 5. Overweight diet and exercise recommended 6. Hyperlipidemia allergic to Statins, will use the second line therapy Ezetimibe starting 10 mg daily. tried to start [place] 3 fatty acids but Pharmacy run out of this medicine. Discussed with patient, her MrDonal Ragland in the room and nurse, all questions answered to the best of my abilities. No [place] 3 fatty acids in this facility discussed with immunology specialist run out of this medications. DVT prophylaxis: SCDs, Dexter Cash. Discharge Planning Once cleared by Neurology specialist the patent wants to go home now. Cj Bernard MD Jan 02, 2017 10:24
[2017-01-02] MEDS: SODIUM CHLOR 0.9% 1000 ML INJ 1,000 ML IV SCH (12:06)
--- NOTE | 2017-01-02 12:47 | HHI.PR ---
Review/Management Diagnosis left basal ganglia cva left carotid stenosis Plan vascular surgery consult regarding left carotid stenosis Diagnosis/Plan: Subjective Subjective Comments No acute events reported Denies focal weakness or numbness Active Medications Current Medications Medications (Trade) Dose Ordered Sig/Shantel Route Start Time Stop Time Status Last Admin (NS 1000 ml Inj) 1,000 ml @ 70 mls/hr [id number] IV 12/31/16 19:00 12/31/16 21:14 (Vasotec Inj) 1.25 mg Q4H PRN IV 12/31/16 19:30 (Aspirin) 325 mg DAILY PO 01/01/17 09:00 01/02/17 10:02 (Lovenox Inj) 40 mg Q24H SQ 12/31/16 20:00 01/01/17 21:06 (Neurontin) 300 mg BID PO 01/01/17 09:00 01/02/17 10:03 (Pepcid) 20 mg DAILY PO 01/01/17 09:00 01/02/17 10:03 (PROzac) 40 mg DAILY PO 01/01/17 09:00 01/02/17 10:02 (NS Flush) 2 ml BID IV FLUSH 01/01/17 21:00 01/02/17 09:00 (NS Flush) 2 ml UNSCH PRN IV FLUSH 01/01/17 15:15 (NovoLOG SUPPLEMENTAL SCALE) 1 ACHS SQ 01/01/17 16:00 01/02/17 11:00 (D50w (Vial) Inj) 50 ml UNSCH PRN IV PUSH 01/01/17 15:15 (Glucagon Inj) 1 mg UNSCH PRN OTHER 01/01/17 15:15 (Zetia) 10 mg DAILY PO 01/01/17 16:30 01/02/17 10:02 Allergies Allergies Coded Allergies HMG-CoA Reductase Inhibitors (Verified Allergy, Intermediate, leg pain, 12/31/16 ) Exam I&O / VS 01/01/17 01/01/17 01/02/17 15:00 23:00 07:00 Intake Total 480 ml 473 ml 757 ml Output Total 4 ml Balance 476 ml 473 ml 757 ml Intake Oral 480 ml 240 ml 240 ml IV Total 233 ml 517 ml Output Urine Total 4 ml # Voids 1 1 # Bowel Movements 1 0 0 Vital Signs Date Time Temp Pulse Resp B/P Pulse Ox O2 Delivery O2 Flow Rate FiO2 01/02/17 08:00 96.7 88 17 147/70 94 01/02/17 04:00 97.7 83 16 136/64 93 01/02/17 00:00 97.8 84 18 154/72 95 01/01/17 22:00 95 01/01/17 20:00 79 01/01/17 20:00 96.9 73 16 168/77 95 01/01/17 16:00 97.6 76 17 156/73 91 Exam Comments alert speech normal CN normal MOTOR--5/5 BUE and BLE Objective Radiology Results CTA brain--normal CTA neck 60-70 % left carotid stenosis Brown Benavides PhD Jan 02, 2017 12:47
--- NOTE | 2017-01-02 14:58 | PD.VS.CON ---
History of Present Illness Chief Complaint: 66 year old hx of CVA approximately 10 years ago (left sided weakness) Had 4 day hx of hallucinations and delusions per . Appeared confused Denie a. fugax, expressive aphasia or any weakness of her extremities. Consult Requested by: Dr. Benavides History of Present Illness 66 year old female hx of HTN and previous CVA as well as VA. Quit smoking in the mid 80s on aggrenox but not statin (myositis side effect). still having hallucinations of foods she ate for breakfast (fish) per . Patient oriented but lethargic. Past/Family/Social History Past Medical History ast Medical History History of CVA with mild residual left-sided weakness Hypertension History of VA Diabetes mellitus Past Surgical History Cardiac catheterization Reported Medications Trulicity Inj (Dulaglutide Inj) 1.5 Mg/0.5 Ml Pen 1.5 Mg SQ Q7D Zantac (Ranitidine HCl) 150 Mg Tab 150 Mg PO DAILY Vitamin D (Cholecalciferol) Unknown Strength Cap 1 Cap PO WEEKLY Aggrenox (Dipyridamole/Aspirin) 200-25 Mg Cap 1 Cap PO BID Hydrochlorothiazide 25 Mg Tab 25 Mg PO DAILY Gabapentin 300 Mg Cap 300 Mg PO BID Fluoxetine (Fluoxetine HCl) 40 Mg Cap 40 Cap PO DAILY Invokana (Canagliflozin) 300 Mg Tab 300 Mg PO DAILY Take before 1st meal of day. Pioglitazone (Pioglitazone HCl) 15 Mg Tab 15 Mg PO DAILY Allergies: Coded Allergies: HMG-CoA Reductase Inhibitors (Verified Allergy, Intermediate, leg pain, 12/31/16) Family History Heart disease Social History Denies tobacco use. Rare alcohol use. Denies illicit drug use. Home Medications Reported Medications Dulaglutide Inj (Trulicity Inj)1.5 Mg/0.5 Ml Pen1.5 Mg SQ Q7D #4 PEN Ref 0 12/31/16 Ranitidine (Zantac)150 Mg Avt535 Mg PO DAILY #30 TAB Ref 0 12/31/16 Cholecalciferol (Vitamin D)Unknown Strength Cap1 Cap PO WEEKLY 12/31/16 Dipyridamole-Aspirin (Aggrenox)200-25 Mg Cap1 Cap PO BID #60 CAP Ref 0 12/31/16 Hydrochlorothiazide 25 Mg Tab25 Mg PO DAILY #30 TAB Ref 0 12/31/16 Gabapentin 300 Mg Cum581 Mg PO BID #60 CAP Ref 0 12/31/16 Fluoxetine 40 Mg Cap40 Cap PO DAILY #30 CAP Ref 0 12/31/16 Canagliflozin (Invokana)300 Mg [id number] Mg PO DAILY #30 TAB Ref 0 Take before 1st meal of day. 12/31/16 Pioglitazone 15 Mg Tab15 Mg PO DAILY #30 TAB Ref 0 12/31/16 Discontinued Reported Medications Dulaglutide Inj (Trulicity Inj)0.75 Mg/0.5 Ml Pen0.5 Mg SQ Q7D #4 PEN Ref 0 12/31/16 Coded Allergies: HMG-CoA Reductase Inhibitors (Verified Allergy, Intermediate, leg pain, 12/31/16) Review of Systems ROS Limitations: Psychotic (hallucinations) Physical Exam Vitals/I&O Date Time Temp Pulse Resp B/P Pulse Ox O2 Delivery O2 Flow Rate FiO2 01/02/17 12:05 97.1 72 18 176/81 94 163/78 01/02/17 08:11 75 01/02/17 08:00 96.7 88 17 147/70 94 01/02/17 04:00 97.7 83 16 136/64 93 01/02/17 00:00 97.8 84 18 154/72 95 01/01/17 22:00 95 01/01/17 20:00 79 01/01/17 20:00 96.9 73 16 168/77 95 01/01/17 16:00 97.6 76 17 156/73 91 01/02/17 01/02/17 01/02/17 07:00 15:00 23:00 Intake Total 757 ml Balance 757 ml Neuro: A&Ox3 No cranial nerve deficits. Neck: Supple Heart: regular Lungs: CTA Abdomen: soft Vascular: Radial pulses palpable. Extremities: lily hose in place. gross motor and sensory intact. Last 48 hours Impressions Neck CTA 01/01/17 0000 Signed Impressions: Service Date/Time: Sunday, January 01, 2017 18:21 - CONCLUSION: 1. 60-70%% stenosis of the left internal carotid artery with eccentric calcified plaque. 2. Less than 20%% stenosis in the right internal carotid artery. Oz Turner MD Head CTA 01/01/17 0000 Signed Impressions: Service Date/Time: Sunday, January 01, 2017 18:21 - CONCLUSION: 1. No focal stenosis or aneurysm. 2. Anatomic variant with the right posterior cerebral artery arising from the anterior circulation. Oz Turner MD Neck Magnetic Resonance Angiography 12/31/161723 Signed Impressions: Service Date/Time: Saturday, December 31, 2016 19:31 - CONCLUSION: Moderate stenosis left internal carotid. Jv Hobson MD FACR Head Magnetic Resonance Angiography 12/31/161723 Signed Impressions: Service Date/Time: Saturday, December 31, 2016 19:31 - CONCLUSION: Intracranial atherosclerotic vascular disease otherwise negative. Jv Hobson MD FACR Brain MRI 12/31/161723 Signed Impressions: Service Date/Time: Saturday, December 31, 2016 19:31 - CONCLUSION: 1. Acute lacunar infarct type infarction in the basal ganglia left side. 2. Moderate periventricular white matter changes. Jv Hobson MD FACR Chest X-Ray 12/31/161706 Signed Impressions: Service Date/Time: Tuesday, December 31, 2016 17:33 - CONCLUSION: 1. No acute cardiopulmonary disease. Ciro Gaxiola MD Assessment and Plan Assessment: (1) CVA (cerebral vascular accident) Status: Acute Plan This is a 66 year old female with hx of CAD and CVA in the past. Last week with hallucinations and confusion. Findings of BG infarct and left sided Carotid stenosis (approximately 70%) by CTA. Patient still lethargic but oriented to time and place. No other focal deficits. 1. Plan for duplex US of carotid arteries. 2. Add second antiplatelet agent 3. Direct evidence for basal ganglia infarct with significant carotid stenosis is questionable. In good risk patient prophylactic left CEA could be justified. 4. Will allow to recover from CVA and follow up in office within 4 weeks to discuss risks and benefits of left CEA. Thanks for this consultation. Rahul Carnes DO, FACS [employer] /Rahul Mosquera DO Jan 02, 2017 14:58
--- NOTE | 2017-01-02 15:29 | RADRPT ---
EXAM DATE/TIME: 01/02/2017 14:30 [facility] COMPARISON: CTA CAROTID ARTERIES W 3D RECON, January 01, 2017, 18:21. INDICATIONS : History of cerebrovascular accident. Abnormal CTA. MEDICAL HISTORY : Stroke. Hypertension. Myocardial infarction. CAD. Diabetes. SURGICAL HISTORY : Cervical ablation. ENCOUNTER: Initial ACUITY: 1 day PAIN SCORE: 2/10 LOCATION: Bilateral neck PEAK SYSTOLIC VELOCITIES (cm/sec): ICA/CCA RATIO: Right: 1.2 Left: 4.5 ICA: Right: 91 Left: 206 CCA: Right: 77 Left: 74 ECA: Right: 104 Left: 199 VERTEBRAL: Right: 75 antegrade Left: 69 antegrade Elevated flow velocities and ICA/CCA ratios have been found to correlate with increased degrees of vessel stenosis, calculated as percentage of diameter relative to a normal segment of distal ICA/CCA FINDINGS: RIGHT CAROTID: Noncalcified mural plaquing in the carotid bulb. The waveforms are within normal limits. LEFT CAROTID: Calcified plaquing in the left carotid bulb with shadowing. The waveforms are within normal limits. VERTEBRAL ARTERIES: Antegrade flow is seen in both vertebral arteries. MISCELLANEOUS: None. CONCLUSION: 1. Plaquing in both carotid bulbs. This is noncalcified on the right and densely calcified on the lef t. 2. Doppler velocities and ratios would suggest a greater than 70% stenosis in the left internal carot id system. Some degree of stenosis in the left external carotid as well. 3. No significant stenosis on the right. Antegrade flow in both vertebral arteries Kennedy Valdes MD on January 02, 2017 at 15:24 Board Certified Radiologist. This report was verified electronically.
--- NOTE | 2017-01-02 15:35 | ECHRPT ---
Indication: CVA/TIA CONCLUSIONS The left ventricular systolic function is normal with an estimated ejection fraction in the range of 55-60%. Wall thickness is normal. Normal left ventricular size. Suswy-iu-[id number] mitral valve regurgitation. There is mild tricuspid valve regurgitation. The estimated pulmonary arterial pressure is 34 mmHg. Aortic valve sclerosis is present. BP: 167 / 78 HR: 88 Rhythm: Sinus MEASUREMENTS (Male / Female) Normal Values Technical Quality:Difficult 2D ECHO LV Diastolic Diameter PLAX 3.5 cm 4.2 - 5.9 / 3.9 - 5.3 cm LV Systolic Diameter PLAX 2.6 cm IVS Diastolic Thickness 0.9 cm 0.6 - 1.0 / 0.6 - 0.9 cm LVPW Diastolic Thickness 0.9 cm 0.6 - 1.0 / 0.6 - 0.9 cm LV Relative Wall Thickness 0.5 LVOT Diameter 1.5 cm M-MODE Aortic Root Diameter MM 2.0 cm LA Systolic Diameter MM 2.6 cm LA Ao Ratio MM 1.3 AV Cusp Separation MM 1.6 cm DOPPLER AV Peak Velocity 153.3 cm/s AV Peak Gradient 9.4 mmHg AV Mean Gradient 8.7 mmHg AV Velocity Time Integral 32.9 cm LVOT Peak Velocity 138.0 cm/s LVOT Peak Gradient 7.6 mmHg AV Area Cont Eq pk 1.6 cm MR Peak Velocity 178.0 cm/s MR Peak Gradient 12.7 mmHg Mitral E Point Velocity 57.8 cm/s Mitral A Point Velocity 93.8 cm/s Mitral E to A Ratio 0.6 LV E' Lateral Velocity 3.2 cm/s Mitral E to LV E' Lateral Ratio 18.0 LV E' Septal Velocity 5.3 cm/s Mitral E to LV E' Septal Ratio 11.0 TR Peak Velocity 244.0 cm/s TR Peak Gradient 23.8 mmHg PV Peak Velocity 156.0 cm/s PV Peak Gradient 9.7 mmHg FINDINGS LEFT VENTRICLE Doppler parameters are consistent with impaired left ventricular relaxtion (grade 1 diastolic dysfun ction). The left ventricular systolic function is normal with an estimated ejection fraction in the range of 55-60%. Wall thickness is normal. Normal left ventricular size. RIGHT VENTRICLE Normal right ventricular size and systolic function. LEFT ATRIUM The left atrial size is normal. RIGHT ATRIUM The right atrial size is normal. ATRIAL SEPTUM Normal atrial septal thickness without atrial level shunting by limited color doppler interrogation. AORTA The aortic root and proximal ascending aorta are normal in size on limited imaging. MITRAL VALVE Dodic-tk-[id number] mitral valve regurgitation. AORTIC VALVE The aortic valve is not well visualized. Aortic valve sclerosis is present. TRICUSPID VALVE The tricuspid valve is not well visualized. There is mild tricuspid valve regurgitation. The estimated pulmonary arterial pressure is 34 mmHg. PULMONARY VALVE The pulmonary valve is not well visualized. VESSELS The inferior vena cava is normal in size. PERICARDIUM No pericardial effusion. Juan Pablo Montes MD (Electronically Signed) Final Date:02 January 2017 15:34
[2017-01-02] MEDS: ENOXAPARIN SODIUM 40 MG/0.4 ML SYRINGE SQ SCH (20:46)
[2017-01-03 00:16] VITALS: BP 147/73; PULSE 74; RESP 17; TEMP 97.9; O2SAT 95
[2017-01-03] MEDS: SODIUM CHLOR 0.9% 1000 ML INJ 1,000 ML IV SCH (00:44)
[2017-01-03 04:30] VITALS: BP 142/63; PULSE 75; RESP 17; TEMP 97.4; O2SAT 96
[2017-01-03] MEDS: INSULIN ASPART SUPPLEMENTAL SCALE SQ SCH ×2 (05:46→10:46)
[2017-01-03 08:00] VITALS: BP 134/68; PULSE 67; RESP 16; TEMP 96.9; O2SAT 95
[2017-01-03] MEDS: FLUoxetine HCL 20 MG CAP PO SCH (08:17)
[2017-01-03] MEDS: FAMOTIDINE 20 MG TAB PO SCH (08:17)
[2017-01-03] MEDS: ASPIRIN 325 MG TAB PO SCH (08:17)
[2017-01-03] MEDS: GABAPENTIN 300 MG CAP PO SCH (08:18)
[2017-01-03] MEDS: SODIUM CHLORIDE 0.9% FLUSH 5 ML FLUSH IV FLUSH SCH (08:18)
[2017-01-03] MEDS: EZETIMIBE 10 MG TAB PO SCH (08:18)
[2017-01-03 08:20] VITALS: PULSE 75
--- NOTE | 2017-01-03 08:59 | HHI.PR ---
Subjective Remarks This is a pleasant 66 y/o Female who was brought in to the ER by relatives due to increasing confusion and disorientation over the last few days. has Depression, Hypertension, History of [place], CVA with mild residual left sided Weakness, CT showed acute/subacute CVA, MRI showed infarct of the basal ganglia, seen in her bedroom in the presence of her Mr. Abhishek Ragland. no complaint, no nausea, vomit or diarrhea, past her swallow test will start diet. 01/02: Seen in her bedroom in the presence of her , no nausea, vomit or diarrhea, continued aspirin by Neurology specialist awaiting for Echocardiogram, asked for Vascular field marketing specialist consult, and if non surgical case will add Plavix, continue seen by PT, OT and ST no need for any of this disciplines. 01/03: Seen in her bedroom, already seen by Vascular event specialist, recommended to follow in four weeks as outpatient no nausea, vomit or diarrhea, no need for PT, OT or Speech therapy she will go home, awaiting final recommendations by Neurology to discharge Home. Objective Vital Signs Date Time Temp Pulse Resp B/P Pulse Ox O2 Delivery O2 Flow Rate FiO2 01/03/17 08:00 96.9 67 16 134/68 95 01/03/17 04:30 97.4 75 17 142/63 96 01/03/17 00:16 97.9 74 17 147/73 95 01/02/17 20:30 97.2 81 17 150/91 95 01/02/17 20:00 79 01/02/17 16:00 97.8 87 18 177/79 96 01/02/17 12:05 97.1 72 18 176/81 94 163/78 I/O 01/02/17 01/02/17 01/02/17 01/03/17 01/03/17 01/03/17 07:00 15:00 23:00 07:00 15:00 23:00 Intake Total 757 ml 720 ml 360 ml 120 ml Balance 757 ml 720 ml 360 ml 120 ml Intake Oral 240 ml 720 ml 360 ml 120 ml IV Total 517 ml # Voids 1 2 2 2 # Bowel Movements 0 0 0 Result Diagram: 12/31/16 1725 12/31/162034 Imaging Last Impressions Carotid Artery Ultrasound 01/02/17 0000 Signed Impressions: Service Date/Time: Monday, January 02, 2017 14:30 - CONCLUSION: 1. Plaquing in both carotid bulbs. This is noncalcified on the right and densely calcified on the left. 2. Doppler velocities and ratios would suggest a greater than 70%% stenosis in the left internal carotid system. Some degree of stenosis in the left external carotid as well. 3. No significant stenosis on the right. Antegrade flow in both vertebral arteries Kennedy Valdes MD Neck CTA 01/01/17 0000 Signed Impressions: Service Date/Time: Sunday, January 01, 2017 18:21 - CONCLUSION: 1. 60-70%% stenosis of the left internal carotid artery with eccentric calcified plaque. 2. Less than 20%% stenosis in the right internal carotid artery. Oz Turner MD Head CTA 01/01/17 0000 Signed Impressions: Service Date/Time: Sunday, January 01, 2017 18:21 - CONCLUSION: 1. No focal stenosis or aneurysm. 2. Anatomic variant with the right posterior cerebral artery arising from the anterior circulation. Oz Turner MD Neck Magnetic Resonance Angiography 12/31/161723 Signed Impressions: Service Date/Time: Saturday, December 31, 2016 19:31 - CONCLUSION: Moderate stenosis left internal carotid. Jv Hobson MD FACR Head Magnetic Resonance Angiography 12/31/161723 Signed Impressions: Service Date/Time: Saturday, December 31, 2016 19:31 - CONCLUSION: Intracranial atherosclerotic vascular disease otherwise negative. Jv Hobson MD FACR Brain MRI 12/31/161723 Signed Impressions: Service Date/Time: Saturday, December 31, 2016 19:31 - CONCLUSION: 1. Acute lacunar infarct type infarction in the basal ganglia left side. 2. Moderate periventricular white matter changes. Jv Hobson MD FACR Chest X-Ray 12/31/161706 Signed Impressions: Service Date/Time: Saturday, December 31, 2016 17:33 - CONCLUSION: 1. No acute cardiopulmonary disease. Ciro Gaxiola MD Procedures None Other Results Laboratory Tests Test 12/31/16 12/31/16 01/01/17 01/01/17 17:25 20:35 03:51 10:04 White Blood Count 8.9 TH/MM3 Red Blood Count 5.44 MIL/MM3 Hemoglobin 15.5 GM/DL Hematocrit 47.0 % Mean Corpuscular Volume 86.5 FL Mean Corpuscular Hemoglobin 28.6 PG Mean Corpuscular Hemoglobin 33.0 % Concent Red Cell Distribution Width 12.8 % Platelet Count 264 TH/MM3 Mean Platelet Volume 8.4 FL Neutrophils (%) (Auto) 65.9 % Lymphocytes (%) (Auto) 24.2 % Monocytes (%) (Auto) 7.3 % Eosinophils (%) (Auto) 1.6 % Basophils (%) (Auto) 1.0 % Neutrophils # (Auto) 5.8 TH/MM3 Lymphocytes # (Auto) 2.1 TH/MM3 Monocytes # (Auto) 0.7 TH/MM3 Eosinophils # (Auto) 0.1 TH/MM3 Basophils # (Auto) 0.1 TH/MM3 CBC Comment DIFF FINAL Differential Comment Prothrombin Time 10.4 SEC Prothromb Time International 0.9 RATIO Ratio Activated Partial 28.9 SEC Thromboplast Time Total Bilirubin 0.9 MG/DL Aspartate Amino Transf 20 U/L (AST/SGOT) Alanine Aminotransferase 31 U/L (ALT/SGPT) Alkaline Phosphatase 108 U/L Total Protein 8.0 GM/DL Albumin 3.8 GM/DL Thyroid Stimulating Hormone 0.593 uIU/ML 3rd Gen Hemoglobin A1c 9.6 % Urine Color LIGHT-YELLOW Urine Turbidity CLEAR Urine pH 5.0 Urine Specific [place] 1.023 Urine Protein NEG mg/dL Urine Glucose (UA) 1000 mg/dL Urine Ketones 40 mg/dL Urine Occult Blood NEG Urine Nitrite NEG Urine Bilirubin NEG Urine Urobilinogen LESS THAN 2.0 MG/DL Urine Leukocyte Esterase SMALL Urine WBC 7 /hpf Urine Squamous Epithelial <1 /hpf Cells Urine Hyaline Casts 1 /lpf Urine Mucus FEW /lpf Microscopic Urinalysis Comment CULT NOT INDICATED Sodium Level 134 MEQ/L Potassium Level 3.5 MEQ/L Chloride Level 99 MEQ/L Carbon Dioxide Level 25.4 MEQ/L Anion Gap 10 MEQ/L Blood Urea Nitrogen 18 MG/DL Creatinine 0.83 MG/DL Estimat Glomerular Filtration 69 ML/MIN Rate Random Glucose 129 MG/DL Calcium Level 8.6 MG/DL Triglycerides Level 247 MG/DL Cholesterol Level 265 MG/DL LDL Cholesterol 172 MG/DL HDL Cholesterol 43.7 MG/DL Cholesterol/HDL Ratio 6.06 RATIO Total Creatine Kinase 43 U/L Troponin I LESS THAN 0.02 NG/ML Objective Remarks GENERAL: Well-nourished, well-developed female] in no acute distress. HEENT: Normocephalic, atraumatic. Pupils equal, round and reactive. Extraocular movements intact. No scleral icterus. No injection or drainage. Oropharynx is clear. Mucous membranes are moist. CARDIOVASCULAR: Regular rate and rhythm without murmurs, gallops, or rubs. RESPIRATORY: Clear to auscultation. No wheezes, rales, or rhonchi. Breathing is non-labored. GASTROINTESTINAL: Abdomen soft, non-tender, nondistended. EXTREMITIES: No lower extremity edema. No calf tenderness. PSYCH: Alert and oriented x 3. NEUROLOGY: alert and oriented, no focal deficits. Medications and IVs Current Medications Medications (Trade) Dose Ordered Sig/Shantel Route Start Time Stop Time Status Last Admin (NS 1000 ml Inj) 1,000 ml @ 70 mls/hr [id number] IV 12/31/16 19:00 12/31/16 21:14 (Vasotec Inj) 1.25 mg Q4H PRN IV 12/31/16 19:30 (Aspirin) 325 mg DAILY PO 01/01/17 09:00 01/03/17 08:17 (Lovenox Inj) 40 mg Q24H SQ 12/31/16 20:00 01/02/17 20:46 (Neurontin) 300 mg BID PO 01/01/17 09:00 01/03/17 08:18 (Pepcid) 20 mg DAILY PO 01/01/17 09:00 01/03/17 08:17 (PROzac) 40 mg DAILY PO 01/01/17 09:00 01/03/17 08:17 (NS Flush) 2 ml BID IV FLUSH 01/01/17 21:00 01/03/17 08:18 (NS Flush) 2 ml UNSCH PRN IV FLUSH 01/01/17 15:15 (NovoLOG SUPPLEMENTAL SCALE) 1 ACHS SQ 01/01/17 16:00 01/02/17 11:00 (D50w (Vial) Inj) 50 ml UNSCH PRN IV PUSH 01/01/17 15:15 (Glucagon Inj) 1 mg UNSCH PRN OTHER 01/01/17 15:15 (Zetia) 10 mg DAILY PO 01/01/17 16:30 01/03/17 08:18 A/P Assessment and Plan 1. CVA: MRI showed Infarct of the left Basal ganglia, receiving aspirin, she has Hyperlipidemia unable to start Statins, seen by Neurology specialist with also Left Carotid Stenosis, recommended for Vascular event specialist for consult recommended to continue Aspirin, and if no surgery performed, will add Plavix, CT angiography for evaluation, awaiting final recommendations by Vascular surgery, continue Telemetry to rule out Atrial Fibrillation, follow Echocardiogram. Patient seen by Vascular specialist left side Carotid Stenosis approximately 70% by CTA, recommended for Duplex US Carotid Arteries, Add secondary antiplatelet Agent, Prophylactic Left CEA could be justified as per Vascular specialist follow up in his office in four weeks. to discuss risks and benefits of left CEA. added Plavix 75 mg daily. 2. Hypertension: controlled. 3. Diabetes mellitus: Monitor Accu-Cheks and cover with sliding scale insulin.stable. Poorly controlled DMII Hemoglobin A1C 9.6. 4. Coronary artery disease: Currently asymptomatic. Patient does not take statin as she developed muscle pains. Ezetimibe started 5. Overweight diet and exercise recommended 6. Hyperlipidemia allergic to Statins, will use the second line therapy Ezetimibe starting 10 mg daily. tried to start [place] 3 fatty acids but Pharmacy run out of this medicine. Discussed with patient, all questions answered to the best of my abilities. okay to discharge home from medicine standpoint. DVT prophylaxis: SCDs, Dexter Cash. Discharge Planning Once cleared by Neurology specialist the patent wants to go home now. Cj Bernard MD Jan 03, 2017 08:59
[2017-01-03] MEDS ORDERED: CLOPIDOGREL 75 MG TAB PO SCH (10:30)
--- NOTE | 2017-01-03 10:38 | PD.VS.PN ---
Subjective Subjective/Hospital Course 66 year old with hx of left Basal Ganglia Infarct and left ICA 70% carotid stenosis. Recovering from CVA with intermittent hallucinations and delusions with some lethargy. Objective Vitals/I&O Date Time Temp Pulse Resp B/P Pulse Ox O2 Delivery O2 Flow Rate FiO2 01/03/17 08:20 75 01/03/17 08:00 96.9 67 16 134/68 95 01/03/17 04:30 97.4 75 17 142/63 96 01/03/17 00:16 97.9 74 17 147/73 95 01/02/17 20:30 97.2 81 17 150/91 95 01/02/17 20:00 79 01/02/17 16:00 97.8 87 18 177/79 96 01/02/17 12:05 97.1 72 18 176/81 94 163/78 01/03/17 01/03/17 01/03/17 07:00 15:00 23:00 Intake Total 120 ml Balance 120 ml Physical Exam Motor and sensory intact upper and lower extremity. CN2-12 intact A&Ox3 Imaging Last 48 hours Impressions Carotid Artery Ultrasound 01/02/17 0000 Signed Impressions: Service Date/Time: Monday, January 02, 2017 14:30 - CONCLUSION: 1. Plaquing in both carotid bulbs. This is noncalcified on the right and densely calcified on the left. 2. Doppler velocities and ratios would suggest a greater than 70%% stenosis in the left internal carotid system. Some degree of stenosis in the left external carotid as well. 3. No significant stenosis on the right. Antegrade flow in both vertebral arteries Kennedy Valdes MD Assessment and Plan Assessment: (1) CVA (cerebral vascular accident) Status: Acute Plan This is a 66 year old female with hx of CAD and CVA in the past. Last week with hallucinations and confusion. Findings of BG infarct and left sided Carotid stenosis (approximately 70%) by CTA/Duplex US 50-79%. Patient still lethargic but oriented to time and place. No other focal deficits. 1. Add second antiplatelet agent (plavix) 2. Direct evidence for basal ganglia infarct with significant carotid stenosis is questionable. In good risk patient prophylactic left CEA could be justified. 3. Will allow to recover from CVA and follow up in office within 4 weeks to discuss risks and benefits of left CEA. 4. Discussed this with patient. 5. Signing off. Thanks for this consultation. Rahul Carnes DO, FACS [employer] V[employer] /Rahul Mosquera DO Jan 03, 2017 10:38
[2017-01-03 11:44] VITALS: BP 137/68; PULSE 73; RESP 16; TEMP 97; O2SAT 94
[2017-01-03] MEDS ORDERED: ASPI325T PO (13:50)
[2017-01-03] MEDS ORDERED: ZETI10TA5 PO (13:50)
[2017-01-03] MEDS ORDERED: PLAV75TA29 PO (13:50)
--- NOTE | 2017-01-03 14:57 | HHI.DS ---
Discharge Summary Admission Date Dec 31, 2016 at 19:07 Discharge Date: Jan 03, 2017 Admitting Diagnosis acute CVA (1) CVA (cerebral vascular accident) ICD Code: I63.9 Diagnosis: Principal (2) Coronary artery disease ICD Code: I25.10 Diagnosis: Secondary (3) Diabetes mellitus ICD Code: E11.9 Diagnosis: Secondary (4) Hypertension ICD Code: I10 Diagnosis: Secondary Procedures None Brief History - From Admission Patient is a 66-year-old female who was brought to the emergency department by her family because they had noticed increasing confusion and disorientation over the last few days. Apparently she has been remembering events that did not happen and seeing family members who had years ago. She states that her uncle one week ago and since that time she has felt "off". Her family believes that a lot of this is because of depression. She was seen by her primary care physician and a CT of the head was ordered. It showed acute/ subacute CVA and the patient was referred to the ER for admission to the hospital. She denies any numbness, tingling, or weakness of her extremities. She has not had any recent vision changes. She denies chest pain or dyspnea. CBC/BMP: 12/31/16 1725 12/31/162034 Significant Findings Laboratory Tests Test 12/31/16 12/31/16 01/01/17 01/01/17 17:25 20:35 03:51 10:04 Red Blood Count 5.44 MIL/MM3 (4.00-5.30) Hemoglobin 15.5 GM/DL (11.6-15.3) Hematocrit 47.0 % (35.0-46.0) Estimat Glomerular Filtration 71 ML/MIN (>89) 69 ML/MIN (>89) Rate Random Glucose 139 MG/DL 129 MG/DL (74-106) (74-106) Hemoglobin A1c 9.6 % (4.3-6.0) Urine Glucose (UA) 1000 mg/dL (NEG) Urine Ketones 40 mg/dL (NEG) Urine Leukocyte Esterase SMALL (NEG) Urine WBC 7 /hpf (0-5) Urine Mucus FEW /lpf (OCC) Sodium Level 134 MEQ/L (136-145) Troponin I LESS THAN 0.02 LESS THAN 0.02 LESS THAN 0.02 NG/ML NG/ML NG/ML (0.02-0.05) (0.02-0.05) (0.02-0.05) Triglycerides Level 247 MG/DL (42-150) Cholesterol Level 265 MG/DL (120-200) LDL Cholesterol 172 MG/DL (0-99) Imaging Last Impressions Carotid Artery Ultrasound 01/02/17 0000 Signed Impressions: Service Date/Time: Monday, January 02, 2017 14:30 - CONCLUSION: 1. Plaquing in both carotid bulbs. This is noncalcified on the right and densely calcified on the left. 2. Doppler velocities and ratios would suggest a greater than 70%% stenosis in the left internal carotid system. Some degree of stenosis in the left external carotid as well. 3. No significant stenosis on the right. Antegrade flow in both vertebral arteries Kennedy Valdes MD Neck CTA 01/01/17 0000 Signed Impressions: Service Date/Time: Sunday, January 01, 2017 18:21 - CONCLUSION: 1. 60-70%% stenosis of the left internal carotid artery with eccentric calcified plaque. 2. Less than 20%% stenosis in the right internal carotid artery. Oz Turner MD Head CTA 01/01/17 0000 Signed Impressions: Service Date/Time: Sunday, January 01, 2017 18:21 - CONCLUSION: 1. No focal stenosis or aneurysm. 2. Anatomic variant with the right posterior cerebral artery arising from the anterior circulation. Oz Turner MD Neck Magnetic Resonance Angiography 12/31/161723 Signed Impressions: Service Date/Time: Saturday, December 31, 2016 19:31 - CONCLUSION: Moderate stenosis left internal carotid. Jv Hobson MD FACR Head Magnetic Resonance Angiography 12/31/161723 Signed Impressions: Service Date/Time: Saturday, December 31, 2016 19:31 - CONCLUSION: Intracranial atherosclerotic vascular disease otherwise negative. Jv Hobson MD FACR Brain MRI 12/31/161723 Signed Impressions: Service Date/Time: Saturday, December 31, 2016 19:31 - CONCLUSION: 1. Acute lacunar infarct type infarction in the basal ganglia left side. 2. Moderate periventricular white matter changes. Jv Hobson MD FACR Chest X-Ray 12/31/16 0600 Signed Impressions: Service Date/Time: Saturday, December 31, 2016 17:33 - CONCLUSION: 1. No acute cardiopulmonary disease. Ciro Gaxiola MD PE at Discharge GENERAL: Well-nourished, well-developed female] in no acute distress. HEENT: Normocephalic, atraumatic. Pupils equal, round and reactive. Extraocular movements intact. No scleral icterus. No injection or drainage. Oropharynx is clear. Mucous membranes are moist. CARDIOVASCULAR: Regular rate and rhythm without murmurs, gallops, or rubs. RESPIRATORY: Clear to auscultation. No wheezes, rales, or rhonchi. Breathing is non-labored. GASTROINTESTINAL: Abdomen soft, non-tender, nondistended. EXTREMITIES: No lower extremity edema. No calf tenderness. PSYCH: Alert and oriented x 3. NEUROLOGY: alert and oriented, no focal deficits. Hospital Course This is a pleasant 66 y/o Female who was brought in to the ER by relatives due to increasing confusion and disorientation over the last few days. has Depression, Hypertension, History of CA, CVA with mild residual left sided Weakness, CT showed acute/subacute CVA, MRI showed infarct of the basal ganglia, seen in her bedroom in the presence of her Mr. Abhishek Ragland. no complaint, no nausea, vomit or diarrhea, past her swallow test will start diet. 01/02: Seen in her bedroom in the presence of her , no nausea, vomit or diarrhea, continued aspirin by Neurology specialist awaiting for Echocardiogram, asked for Vascular youth specialist consult, and if non surgical case will add Plavix, continue seen by PT, OT and ST no need for any of this disciplines. 01/03: Seen in her bedroom, already seen by Vascular surgery manager, recommended to follow in four weeks as outpatient no nausea, vomit or diarrhea, no need for PT, OT or Speech therapy she will go home, awaiting final recommendations by Neurology to discharge Home. Assessment and Plan 1. CVA: MRI showed Infarct of the left Basal ganglia, receiving aspirin, she has Hyperlipidemia unable to start Statins, seen by Neurology specialist with also Left Carotid Stenosis, recommended for Vascular surgery manager for consult recommended to continue Aspirin, and if no surgery performed, will add Plavix, CT angiography for evaluation, awaiting final recommendations by Vascular surgery, continue Telemetry to rule out Atrial Fibrillation, follow Echocardiogram. Patient seen by Vascular specialist left side Carotid Stenosis approximately 70% by CTA, recommended for Duplex US Carotid Arteries, Add secondary antiplatelet Agent, Prophylactic Left CEA could be justified as per Vascular specialist follow up in his office in four weeks. to discuss risks and benefits of left CEA. added Plavix 75 mg daily. 2. Hypertension: controlled. 3. Diabetes mellitus: Monitor Accu-Cheks and cover with sliding scale insulin.stable. Poorly controlled DMII Hemoglobin A1C 9.6. 4. Coronary artery disease: Currently asymptomatic. Patient does not take statin as she developed muscle pains. Ezetimibe started 5. Overweight diet and exercise recommended 6. Hyperlipidemia allergic to Statins, will use the second line therapy Ezetimibe starting 10 mg daily. tried to start [place] 3 fatty acids but Pharmacy run out of this medicine. Discussed with patient, all questions answered to the best of my abilities. okay to discharge home from medicine standpoint. at this time I was called by [facility] her Nurse who states Neurology specialist Doctor Kennedy cleared her going home as we said she does not meet criteria for any Rehabilitation service. DVT prophylaxis: SCDs, Dexter Cash. Discharge Planning Discharge Home Pt Condition on Discharge: Good Discharge Disposition: Discharge Home Discharge Time: <= 30 minutes Discharge Instructions DIET: Follow Instructions for: Heart Healthy Diet, Diabetic Diet Activities you can perform: Regular-No Restrictions Cj Bernard MD Jan 03, 2017 14:57
== END 2017-01-03 15:57 | disposition home or self-care (01) | DRG 66 ==
LOC: NEPC 16:25 → NEDA 19:07 → N06B 21:49
PROVIDERS: ADMIT Internal Medicine; ATTEND Internal Medicine
DX: I63.8 Other cerebral infarction (principal); G20 Parkinson's disease; F02.80 Dementia in other diseases classified elsewhere, unspecified severity, without behavioral disturbance, psychotic disturbance, mood disturbance, and anxiety; I65.22 Occlusion and stenosis of left carotid artery; E11.9 Type 2 diabetes mellitus without complications; I25.10 Atherosclerotic heart disease of native coronary artery without angina pectoris; M19.90 Unspecified osteoarthritis, unspecified site; I10 Essential (primary) hypertension; E78.5 Hyperlipidemia, unspecified; I25.2 Old myocardial infarction; Z95.5 Presence of coronary angioplasty implant and graft; Z79.84 Long term (current) use of oral hypoglycemic drugs; F22 Delusional disorders; Z79.82 Long term (current) use of aspirin
CPT/HCPCS: 70496; 70498; 70544; 70548; 70553; 71010; 80048; 80053; 80061; 81001; 82550; 82948; 83036; 84443; 84484; 85025; 85610; 85730; 93005; 93306; 93880; 94150; A9579; J1650; J1815; J7030; Q9967